=== PATIENT | male | born 1985 | race American Indian/Alaskan Native ===

== ENCOUNTER 2017-04-26 14:29 | Emergency (ER) | payer OTHER ==
[2017-04-26 15:02] VITALS: BP 135/74; PULSE 69; RESP 18; TEMP 98.2; O2SAT 100
--- NOTE | 2017-04-26 15:47 | ED PDOC ---
HPI: General Adult Time Seen by Provider: 04/26/17 15:02 Chief Complaint (Nursing): Upper Extremity Problem/Injury Chief Complaint (Provider): Right wrist pain History Per: Patient History/Exam Limitations: no limitations Onset/Duration Of Symptoms: Days (x 3) Additional Complaint(s): Chase is a 31 y/o male who states for the past several days hes had atraumatic right wrist pain, at the site where a ganglionic cyst was removed in July 2016. States that he made an appointment with his surgeon, but is uncertain of his name (with [facility]). Denies any associated numbness, tingling, fever, or trauma. PMD: Jackie Tineo Past Medical History Reviewed: Historical Data, Nursing Documentation, Vital Signs Vital Signs: Last Vital Signs Temp 98.2 F 04/26/17 14:56 Pulse 69 04/26/17 14:56 Resp 18 04/26/17 14:56 BP 135/74 04/26/17 14:56 Pulse Ox 100 04/26/17 14:56 - Medical History Other PMH: Ganglionic cyst on right wrist - Surgical History Other surgeries: Removal of cyst - Family History Family History: States: Unknown Family Hx - Home Medications Home Medications: Ambulatory Orders Medication Instructions Recorded Dicyclomine [Dicyclomine HCl] 10 mg PO TID #10 cap 06/08/16 Meloxicam [Mobic] 1 - 2 tab PO DAILY PRN #30 tab 04/26/17 - Allergies Allergies/Adverse Reactions: Allergies Allergy/AdvReac Type Severity Reaction Status Date / Time No Known Allergies Allergy Verified 06/08/16 08:27 Review of Systems ROS Statement: Except As Marked, All Systems Reviewed And Found Negative Constitutional: Negative for: Fever, Other (Trauma) Musculoskeletal: Positive for: Arm Pain (Right wrist pain) Neurological: Negative for: Numbness, Other (Tingling) Physical Exam - Reviewed Nursing Documentation Reviewed: Yes Vital Signs Reviewed: Yes - Physical Exam Appears: Positive for: Well, Non-toxic, No Acute Distress Pulses-Radial (L): 2+ Pulses-Radial (R): 2+ Extremity: Positive for: Normal ROM (Full ROM of wrist actively), Capillary Refill (< 2 sec), Other (Old well-healed surgical scar on the dorsum of right wrist). Negative for: Swelling (or erythema) - ECG O2 Sat by Pulse Oximetry: 100 (RA) Pulse Ox Interpretation: Normal - Progress ED Course And Treament: --X Ray negative for drew deformity --Patient instructed to follow up with Orthopedist as previously scheduled and use splint as needed Medical Decision Making Medical Decision Making: Time: 15:12 Initial Plan: --Pending X-Ray Right Wrist --No drew abnormality on X-Ray --Patient will be provided with splint Time: 15:48 Clinical Impression: Wrist Pain Upon provider evaluation patient is medically stable, and requires no further treatment in the ED at this time. Patient will be discharged with Rx for Meloxicam prn. Counseling was provided and all questions were answered regarding diagnosis and need for follow up with [facility] as scheduled. There is agreement to discharge plan. Return if symptoms persist or worsen. Scribe Attestation: Documented by Linda Self, acting as a scribe for Matt Ruelas PA-C. Provider Scribe Attestation: All medical record entries made by the Scribe were at my direction and personally dictated by me. I have reviewed the chart and agree that the record accurately reflects my personal performance of the history, physical exam, medical decision making, and the department course for this patient. I have also personally directed, reviewed, and agree with the discharge instructions and disposition. Disposition - Clinical Impression Clinical Impression: Wrist pain - Patient ED Disposition Is Patient to be Admitted: No Counseled Patient/Family Regarding: Studies Performed, Diagnosis, Need For Followup - Disposition Disposition: Routine/Home Disposition Time: 15:48 Condition: STABLE Additional Instructions: Follow up with [facility] next week as previously scheduled without fail. Use splint until cleared by your surgeon. Prescriptions: Naproxen [Naprosyn] 500 mg PO BID PRN #14 tab PRN Reason: Pain Instructions: Arthralgia (ED) Forms: [employer] (Mongolian) Print Language: LATVIAN
--- NOTE | 2017-04-26 16:06 | RAD ---
PROCEDURE: Right Wrist Radiographs. HISTORY: Pain. No history of recent/ related trauma provided COMPARISON: None. FINDINGS: BONES: Normal. No fracture. JOINTS: Normal. No dislocation. SOFT TISSUES: Normal. OTHER FINDINGS: None. IMPRESSION: Unremarkable she right wrist radiographs. No preliminary report provided by emergency department personnel.
== END 2017-04-26 16:06 | disposition home or self-care (01) ==
LOC: H.ER 14:29
DX: M25.531 Pain in right wrist (principal)

== ENCOUNTER 2017-07-13 00:08 | Emergency (ER) | payer OTHER ==
[2017-07-13] MEDS ORDERED: Oxycodone/Acetaminophen 5/325 mg Tab PO STA (00:32)
[2017-07-13 00:33] VITALS: BP 130/86; PULSE 74; RESP 16; TEMP 98; O2SAT 100
--- NOTE | 2017-07-13 00:34 | ED PDOC ---
Lower Extremity Pain/Injury Time Seen by Provider: 07/13/17 00:32 Chief Complaint (Nursing): Lower Extremity Problem/Injury Chief Complaint (Provider): LEFT FOOT PAIN History Per: Patient (31 Y/O MALE HERE WITH LEFT FOOT PAIN WORSENING SINCE STEROID INJECTION BY DR. WHITE 6PM. STATES HE HAS CHRONIC FOOT PAIN IN MORNINGS WITH INCREASED WALKING. WAS GIVEN STEROID INJECTION BY DR. ROSALES TODAY WITH EXACERBATION OF PAIN 1 HOUR PRIOR TO ED ARRIVAL. TOOK NAPROXEN AT THAT TIME WITHOUT RELIEF.) Past Medical History Reviewed: Historical Data, Nursing Documentation, Vital Signs Vital Signs: Last Vital Signs Temp 98.0 F 07/13/17 00:18 Pulse 74 07/13/17 00:18 Resp 16 07/13/17 00:18 BP 130/86 07/13/17 00:18 Pulse Ox 100 07/13/17 00:18 - Family History Family History: States: Unknown Family Hx - Home Medications Home Medications: Ambulatory Orders Medication Instructions Recorded Dicyclomine [Dicyclomine HCl] 10 mg PO TID #10 cap 06/08/16 Meloxicam [Mobic] 1 - 2 tab PO DAILY PRN #30 tab 04/26/17 Naproxen 1 tab PO BID PRN #14 tab 07/13/17 oxyCODONE/Acetaminophen [Percocet 1 ea PO Q6 PRN #6 tab 07/13/17 5/325 mg Tab] - Allergies Allergies/Adverse Reactions: Allergies Allergy/AdvReac Type Severity Reaction Status Date / Time No Known Allergies Allergy Verified 06/08/16 08:27 Review of Systems ROS Statement: Except As Marked, All Systems Reviewed And Found Negative Musculoskeletal: Positive for: Foot Pain Physical Exam - Reviewed Nursing Documentation Reviewed: Yes Vital Signs Reviewed: Yes - Physical Exam Appears: Positive for: Well, Non-toxic, No Acute Distress Head Exam: Positive for: ATRAUMATIC, NORMAL INSPECTION, NORMOCEPHALIC Skin: Positive for: Normal Color, Warm, DRY Eye Exam: Positive for: EOMI, Normal appearance, PERRL ENT: Positive for: Normal ENT Inspection Neck: Positive for: Normal, Painless ROM Cardiovascular/Chest: Positive for: Regular Rate, Rhythm Respiratory: Positive for: CNT, Normal Breath Sounds Gastrointestinal/Abdominal: Positive for: Normal Exam, Bowel Sounds, Soft Back: Positive for: Normal Inspection Extremity: Positive for: Normal ROM, Other (NO SIGNS OF INFECTION/ERYTHEMA/ SWELLING. PATIENT NOTES TENDERNESS LATERAL ASPECT OF LEFT FOOT.) Neurologic/Psych: Positive for: Alert, Oriented - ECG O2 Sat by Pulse Oximetry: 100 - Progress ED Course And Treament: PERCOCET 5/325 MG X 1 DOSE SEEN BY PODIATRY. PATIENT HAS STEROID INDUCED PAIN. WILL GIVE NSAIDS RX/RECOMMEND ICE AND SHORT COURSE OF NARCOTIC MEDICATION TO ASSIST WITH PAIN MANAGEMENT OVER NEXT 2 DAYS Disposition - Clinical Impression Clinical Impression: Foot pain - Patient ED Disposition Is Patient to be Admitted: No - Disposition Referrals: Kei White MD [Staff Provider] - Disposition: Routine/Home Disposition Time: 01:09 Condition: FAIR Prescriptions: Naproxen 1 tab PO BID PRN #14 tab PRN Reason: Pain, Moderate (4-7) oxyCODONE/Acetaminophen [Percocet 5/325 mg Tab] 1 ea PO Q6 PRN #6 tab PRN Reason: Pain, Severe (8-10) Instructions: Foot Contusion (ED) Forms: [facility] (Togolese), [facility] ED School/Work Excuse
[2017-07-13] MEDS ORDERED: Oxycodone/Acetaminophen 5/325 mg Tab ONE (00:37)
--- NOTE | 2017-07-13 14:19 | CP.PCM.CON ---
History of Present Illness - History of Present Illness History of Present Illness: 31 year old male presents to ED complaining of severe pain to his left foot. Patient states that around 6 pm on 07/[address] White's office complaining of mild dorsal left foot pain. Xrays were negative for any type of trauma or arthritic changes and patient was told that he may have a tendinitis. He was given a corticosteroid injection to the area of pain and states that several hours later he began experiencing excruciating pain at the site of injection. He denies any dermatological changes, itching, redness, etc to the area. Patient denies any further pedal complaints at this time. Patient denies n /v/f/c/cp/sob Review of Systems - Review of Systems Review of Systems: ROS unremarkable outside of HPI Past Patient History - Past Social History Smoking Status: Never Smoked - PSYCHIATRIC Hx Substance Use: No - SURGICAL HISTORY Hx Surgeries: Yes Other/Comment: Right fasciotomy- 2011. right wrist surgery. Right femoral artery surgery - ANESTHESIA Hx Anesthesia: Yes Hx Anesthesia Reactions: No Meds Home Medications: Home Medication List Medication Instructions Recorded Confirmed Type Naproxen 1 tab PO BID PRN #14 tab 07/13/17 Rx oxyCODONE/Acetaminophen [Percocet 1 ea PO Q6 PRN #6 tab 07/13/17 Rx 5/325 mg Tab] Allergies/Adverse Reactions: Allergies Allergy/AdvReac Type Severity Reaction Status Date / Time No Known Allergies Allergy Verified 06/08/16 08:27 Physical Exam - Constitutional Appears: Well, Non-toxic, No Acute Distress - Extremities Exam Additional comments: LE focused exam: Vasc: DP/PT pulses palpable 2/4 b/l. Skin temperature warm to warm from proximal to distal. CFT < 3 seconds to all digits b/l. No edema noted to b/l feet. Neuro: Epicritic and protective sensation grossly intact b/l Derm: No open lesions, wounds, maceration, xerosis, abnormal pigmentation or abnormal growths noted b/l MSK: Severe POP with light touch to left dorsal foot - Neurological Exam Neurological exam: Alert, Oriented x3 - Psychiatric Exam Psychiatric exam: Normal Affect, Normal Mood Results - Vital Signs Recent Vital Signs: Last Vital Signs Temp 98.0 F 07/13/17 00:18 Pulse 74 07/13/17 00:18 Resp 16 10/17/17 00:18 BP 130/86 07/13/17 00:18 Pulse Ox 100 07/13/17 01:13 Assessment & Plan - Assessment and Plan (Free Text) Assessment: 31 year old male presents to ED with cortisone flare to left dorsal foot Plan: Patient seen and evaluated in ED Charts, labs, vitals reviewed Plan discussed with attending Dr. White Explained to patient that cortisone flares are self limiting RX: Motrin RX: Percocet Advised patient to perform RICE therapy for next 24 hours Advised patient that symptoms should begin improving in next 24 hours and if they did not that he should seek medical attention again Advised patient to ice area continuously and follow up with Dr. White in his clinic - Date & Time Date: 07/13/17 Time: 01:00
== END 2017-07-13 02:08 | disposition home or self-care (01) ==
LOC: H.ER 00:08
DX: M79.672 Pain in left foot (principal)